=== PATIENT | female | born 1950 | race Caucasian/White ===

== ENCOUNTER → 2017-09-01 | Outpatient (CLI) | payer OTHER | LOC: RAD 02:35 | DX: Z12.31 Encounter for screening mammogram for malignant neoplasm of breast (principal) ==

== ENCOUNTER → 2017-09-06 | Outpatient (CLI) | payer OTHER | LOC: ULTRA 01:17 | DX: N63.0 Unspecified lump in unspecified breast (principal) ==

== ENCOUNTER → 2018-12-19 | Outpatient (CLI) | payer OTHER | LOC: RAD 01:07 | DX: Z12.31 Encounter for screening mammogram for malignant neoplasm of breast (principal) ==

== ENCOUNTER → 2020-10-09 | Outpatient (CLI) | payer OTHER | LOC: HYPER 07:38 | PROVIDERS: ATTEND Emergency Medicine Emergency Medical Services | DX: S81.002A Unspecified open wound, left knee, initial encounter (principal); S81.801A Unspecified open wound, right lower leg, initial encounter; S80.01XA Contusion of right knee, initial encounter; L98.8 Other specified disorders of the skin and subcutaneous tissue; R60.0 Localized edema; Z79.899 Other long term (current) drug therapy; W11.XXXA Fall on and from ladder, initial encounter; Y93.89 Activity, other specified; Y92.008 Other place in unspecified non-institutional (private) residence as the place of occurrence of the external cause; Y99.8 Other external cause status ==

== ENCOUNTER → 2020-10-23 | Outpatient (CLI) | payer OTHER | LOC: HYPER 07:38 | PROVIDERS: ATTEND Emergency Medicine Emergency Medical Services | DX: S81.002D Unspecified open wound, left knee, subsequent encounter (principal); I96 Gangrene, not elsewhere classified; S80.01XD Contusion of right knee, subsequent encounter; R60.0 Localized edema; Z79.899 Other long term (current) drug therapy; X58.XXXD Exposure to other specified factors, subsequent encounter ==

== ENCOUNTER → 2020-11-06 | Outpatient (CLI) | payer OTHER | LOC: HYPER 07:39 | PROVIDERS: ATTEND Emergency Medicine Emergency Medical Services | DX: S81.002D Unspecified open wound, left knee, subsequent encounter (principal); L97.822 Non-pressure chronic ulcer of other part of left lower leg with fat layer exposed; R60.0 Localized edema; X58.XXXD Exposure to other specified factors, subsequent encounter ==

== ENCOUNTER → 2020-11-20 | Outpatient (CLI) | payer OTHER | LOC: HYPER 07:38 | PROVIDERS: ATTEND Emergency Medicine | DX: S81.002D Unspecified open wound, left knee, subsequent encounter (principal); L97.822 Non-pressure chronic ulcer of other part of left lower leg with fat layer exposed; R60.0 Localized edema; Z79.899 Other long term (current) drug therapy; X58.XXXD Exposure to other specified factors, subsequent encounter ==

== ENCOUNTER → 2020-12-07 | Outpatient (CLI) | payer OTHER | LOC: HYPER 07:42 | PROVIDERS: ATTEND Emergency Medicine Emergency Medical Services | DX: S81.802D Unspecified open wound, left lower leg, subsequent encounter (principal); L97.822 Non-pressure chronic ulcer of other part of left lower leg with fat layer exposed; S81.012A Laceration without foreign body, left knee, initial encounter; R60.0 Localized edema; Z79.899 Other long term (current) drug therapy; X58.XXXD Exposure to other specified factors, subsequent encounter; X58.XXXA Exposure to other specified factors, initial encounter; Y93.89 Activity, other specified; Y92.89 Other specified places as the place of occurrence of the external cause; Y99.8 Other external cause status ==

== ENCOUNTER → 2020-12-07 | Outpatient (CLI) | payer OTHER | LOC: RAD 10:17 | PROVIDERS: ATTEND Family Medicine | DX: Z12.31 Encounter for screening mammogram for malignant neoplasm of breast (principal); N60.01 Solitary cyst of right breast; N60.02 Solitary cyst of left breast; N63.10 Unspecified lump in the right breast, unspecified quadrant; N63.20 Unspecified lump in the left breast, unspecified quadrant ==

== ENCOUNTER → 2020-12-21 | Outpatient (CLI) | payer OTHER | LOC: HYPER 08:58 | PROVIDERS: ATTEND Emergency Medicine Emergency Medical Services | DX: S81.802D Unspecified open wound, left lower leg, subsequent encounter (principal); L97.822 Non-pressure chronic ulcer of other part of left lower leg with fat layer exposed; R60.0 Localized edema; Z79.899 Other long term (current) drug therapy; X58.XXXD Exposure to other specified factors, subsequent encounter ==

== ENCOUNTER → 2021-01-04 | Outpatient (CLI) | payer OTHER | LOC: HYPER 08:50 | PROVIDERS: ATTEND Emergency Medicine | DX: S81.012D Laceration without foreign body, left knee, subsequent encounter (principal); S80.02XD Contusion of left knee, subsequent encounter; L97.822 Non-pressure chronic ulcer of other part of left lower leg with fat layer exposed; R60.0 Localized edema; X58.XXXD Exposure to other specified factors, subsequent encounter ==

== ENCOUNTER → 2021-01-25 | Outpatient (CLI) | payer OTHER | LOC: HYPER 07:48 | PROVIDERS: ATTEND Emergency Medicine Emergency Medical Services | DX: S81.012D Laceration without foreign body, left knee, subsequent encounter (principal); S80.02XD Contusion of left knee, subsequent encounter; L97.822 Non-pressure chronic ulcer of other part of left lower leg with fat layer exposed; R60.0 Localized edema; X58.XXXD Exposure to other specified factors, subsequent encounter ==